=== PATIENT | male | born 1995 | race Caucasian/White ===

== ENCOUNTER → 2020-10-28 | Outpatient (CLI) | payer OTHER | LOC: MHCPAIN 08:20 | DX: M54.2 Cervicalgia (principal); M25.511 Pain in right shoulder; M79.18 Myalgia, other site; G89.29 Other chronic pain | CPT/HCPCS: G0463 ==

== ENCOUNTER → 2020-11-04 | Outpatient (CLI) | payer OTHER | LOC: MHCPAIN 10:08 | DX: M54.5 Low back pain (principal); M79.18 Myalgia, other site; M54.2 Cervicalgia; M53.3 Sacrococcygeal disorders, not elsewhere classified | CPT/HCPCS: J1040 ==